=== PATIENT | male | born 1985 | race Caucasian/White ===

== ENCOUNTER 2019-02-13 13:00 | Emergency (ER) | payer SELFPAY ==
[2019-02-13 13:34] VITALS: BP 124/88; PULSE 75; RESP 20; TEMP 97.8; O2SAT 99
[2019-02-13] MEDS ORDERED: Bacitracin 500 Units/gm Oint Foilpak UD TOP ONE (13:57)
[2019-02-13] MEDS ORDERED: Lidocaine 1% Inj (20ml) INFIL ONE (13:57)
--- NOTE | 2019-02-13 14:06 | C.PDOC ---
History Of Present Illness 33 y/o male presents with laceration to left index finger; pt sts a piece of iron fell onto his hand today while doing something. tdap utd. Time Seen by Provider: 02/13/19 13:48 Chief Complaint (Nursing): Abnormal Skin Integrity History Per: Patient History/Exam Limitations: no limitations Onset/Duration Of Symptoms: Hrs Current Symptoms Are (Timing): Still Present Location Of Injury: Left: Hand Quality Of Symptoms: Painful Severity: Mild Past Medical History Reviewed: Historical Data, Nursing Documentation, Vital Signs Vital Signs: Last Vital Signs Temp 97.8 F 02/13/19 13:34 Pulse 75 02/13/19 13:34 Resp 20 02/13/19 13:34 BP 124/88 02/13/19 13:34 Pulse Ox 99 02/13/19 13:34 - Medical History PMH: No Chronic Diseases Family History: States: Unknown Family Hx - Social History Hx Alcohol Use: No Hx Substance Use: No - Immunization History Hx Tetanus Toxoid Vaccination: Yes (18MO AGO) Review Of Systems Constitutional: Negative for: Fever, Chills Skin: Positive for: Other (laceration left index finger) Neurological: Negative for: Weakness, Numbness Physical Exam - Physical Exam Appears: Non-toxic, No Acute Distress Skin: Warm, Dry, Other (2 cm irregular laceration diagonally across left index finger ventral side over pip) Extremity: Other (tender to left index finger all phalanges with laceration. tender proximal 3rd and 4th left phalanges. normal rom all left fingers, wrist and elbow) Pulses: Left Radial: Normal Neurological/Psych: Oriented x3, Normal Speech, Normal Cognition ED Course And Treatment O2 Sat by Pulse Oximetry: 99 - Other Rad left hand X-Ray: Viewed By Me, Read By Radiologist Interpretation: IMPRESSION: No crush fracture or radiopaque foreign body. Laceration - Laceration Repair left index finger Wound Length (In cm): 2.5 Description Of Wound: Irregular, Stellate Anesthesia: Lidocaine 1% Wound Examination: Irrigated With Saline, No FB With Wound Exploration, No Tendon Injury With Wound Exploration Wound Closure: Suture (4-0 ethilon) Suture Technique And Material Used: Interrupted (#4) Wound Complexity: Simple Medical Decision Making Medical Decision Making: crush injury left fingers with laceration- xray, wound repair 1600 wound repair done; xray neg for fx. d/c home with keflex Disposition Counseled Patient/Family Regarding: Studies Performed, Diagnosis, Need For Followup, Rx Given - Disposition Referrals: [facility] [Outside] Disposition: HOME/ ROUTINE Disposition Time: 16:02 Condition: GOOD Additional Instructions: Tenere le elo ferite pulite e asciutte. Continuare a vestirsi bulmaro a domani; quindi rimuovere, lavare con acqua e sapone, asciugare delicatamente e applicare l'antiboitico e applicare la meeta. Prendi antobiotics bulmaro al completamento e ibuprofen per il dolore come prescritto. Rimozione stephany sutura in 7-10 giorni. Ritorna a ER per eventuali segni di infezione, come arrossamento, gonfiore, pus dalla ferita. Keep injured finger clean and dry. Keep dressing on until tomorrow; then remove, wash with soap and water, pat dry gently and apply antiboitic opntment and put bandage on. Take antobiotics until complete and ibuprofen for pain as prescribed. Suture removal in 7-10 days. Return to ER for any signs of infection, such as redness, swelling, pus from wound. Prescriptions: Bacitracin OINT 1 applic TOP BID #1 tube Cephalexin [cephalexin] 500 mg PO Q6 #28 cap Ibuprofen [Motrin] 600 mg PO TID #30 tab Instructions: Crush Injury (DC), Laceration Repair With Stitches (DC) Forms: Gen Discharge Inst [place]an, [facility] (Zimbabwean) Print Language: IVORIAN - Clinical Impression Clinical Impression: Laceration of left index finger, Crushing injury of finger(s)
[2019-02-13] MEDS ORDERED: Bacitracin 500 Units/gm Oint Foilpak UD ONE (14:10)
[2019-02-13] MEDS ORDERED: Lidocaine Hydrochloride 10 ML INJ ONE (14:10)
--- NOTE | 2019-02-13 14:43 | RAD ---
PROCEDURE: Left Hand Radiographs. HISTORY: pain to 2m 3, 4 fingerds s/p crush injury COMPARISON: None. FINDINGS: BONES: Bone alignment and mineralization are normal. There is no acute displaced fracture or bone destruction. JOINTS: Normal. No osteoarthritic changes. SOFT TISSUES: Normal. OTHER FINDINGS: None. IMPRESSION: No crush fracture or radiopaque foreign body.
== END 2019-02-13 16:15 | disposition home or self-care (01) ==
LOC: C.ER 13:00
DX: S61.211A Laceration without foreign body of left index finger without damage to nail, initial encounter (principal); W23.0XXA Caught, crushed, jammed, or pinched between moving objects, initial encounter